=== PATIENT | male | born 2000 | race Caucasian/White ===

== ENCOUNTER 2020-01-06 08:06 | Outpatient (CLI) | payer OTHER, SELFPAY ==
--- NOTE | 2020-01-06 08:23 | MR_ITS ---
WS: [id number] MRI LEFT KNEE NONCONTRAST TECHNIQUE: Axial PD, coronal PD fat sat, coronal PD, sagittal PD, and sagittal PD fat-sat images obta ined. CLINICAL INFORMATION: UNSPECIFIED TEAR COMPARISON: None. FINDINGS: Distal quadriceps and patella tendons are intact. Left eccentric suprapatellar effusion. ACL is compl etely torn. No normal ACL fibers. PCL is normal. ACL contusion pattern involving the anterolateral fe moral condyle and posterior lateral tibial plateau. Additional contusion involving the anterior media l femoral condyle. Intrasubstance signal abnormality involving the posterior horn medial and lateral meniscus. No acute appearing meniscal tears. Moderate medial lateral joint space narrowing advanced f or patient this age. Subchondral degenerative change along the femoral intercondylar notch. Mild chondromalacia patella. No subchondral edema. Medial and lateral patellar retinacula appear inta ct. Normal popliteal fossa. Medial and lateral collateral ligaments appear intact. Normal popliteal f jermaine. MR/MR knee LT wo con* [id number] IMPRESSION: 1. High-grade complete tear of the ACL. No normal fibers visualized. PCL is in tact. 2. Chronic intrasubstance signal abnormality involving the posterior horn medi al and lateral meniscus. No acute appearing meniscal tears. 3. Medial and lateral collateral ligaments appear intact. 4. Contusion involving the anterolateral femoral condyle and posterior medial tibial plateau. Additional edema/contusion involving the anterior medial femora l condyle. 5. Mild chondromalacia patella. 6. Small left eccentric suprapatellar effusion. 7. Moderate medial lateral joint space narrowing advanced for patient this age .
== END 2020-01-06 08:07 | disposition home or self-care (01) ==
LOC: RADWPI 08:09
PROVIDERS: PCP Family Medicine; Visit Provider Internal Medicine
DX: S83.512A Sprain of anterior cruciate ligament of left knee, initial encounter (principal); S80.02XA Contusion of left knee, initial encounter; M22.42 Chondromalacia patellae, left knee; M25.462 Effusion, left knee; X58.XXXA Exposure to other specified factors, initial encounter
CPT/HCPCS: 73721

== ENCOUNTER 2024-12-01 12:08 | Outpatient (CLI) | payer OTHER, SELFPAY ==
--- NOTE | 2024-12-01 12:13 | MR_ITS ---
WS: [id number] MRI LEFT KNEE HISTORY: INJURY OF L KNEE, prior ACL repair. COMPARISON: 01/06/2020 Anterior cruciate ligament: Prior ACL repair appears intact. Mild heterogeneity in the proximal tendon but no tear. Posterior cruciate ligament: Intact. Medial collateral ligament: Intact. Posterior lateral corner structures: Intact. Medial menisci: Intact. Normal signal, size and shape. Lateral meniscus: Intact. Normal signal, size and shape. Extensor mechanism: Distal quadriceps tendon and patellar tendons are intact. Fluid and soft tissue: Minimal increased fluid in the suprapatellar bursa. No Mo's cyst. Osseous and articular structures: Patellofemoral compartment: Normal. Medial compartment: Mild narrowing of the compartment. Full-thickness increased signal measuring 5 mm along the weightbearing surface of the femoral condyle. No underlying marrow edema. Lateral compartment: Very minimal narrowing of the lateral compartment. Mild fissuring of the cartilage. No fracture or marrow edema. Focal marrow edema in the anterior femoral condyle is new. New osteochondral lesion measuring 4 mm just anterior to the lateral tibial spine. There are 2 intermediate signal foci within the intercondylar notch. The largest measures 14 x 9 mm and is anterior within the intercondylar notch and closely associated with the distal ACL. There is an additional smaller 6 x 6 mm intermediate signal intra-articular body and more centrally positioned in the intercondylar notch. Mild sprain involving the medial head of the gastrocnemius from the posterior femoral condyle. MR/MR knee LT wo con* [id number] IMPRESSION: 1. Intact ACL reconstruction. 2. No meniscal tears. 3. There are 2 intermediate signal foci in the intercondylar notch which may b e intra-articular bodies. These may be meniscal or osseous fragments. The large st measures 14 x 9 mm. These are both closely associated with the repaired ACL. 4. New, 4 mm osteochondral lesion anterior tibial plateau adjacent to the ACL. 5. Mild narrowing medial compartment with 5 mm softening of the cartilage yvette g the weightbearing surface of the femoral condyle. 6. Additional new marrow edema in the anterior mid femoral condyle. Nonweightb earing surface. 7. Mild sprain involving the medial head of the gastrocnemius from the posteri or femoral condyle.
== END 2024-12-01 12:09 | disposition home or self-care (01) ==
LOC: RAD 12:10
PROVIDERS: PCP Family Medicine; Visit Provider Family Medicine
DX: S89.92XA Unspecified injury of left lower leg, initial encounter (principal); S83.8X2A Sprain of other specified parts of left knee, initial encounter; X58.XXXA Exposure to other specified factors, initial encounter; M23.42 Loose body in knee, left knee; M70.52 Other bursitis of knee, left knee; M93.862 Other specified osteochondropathies, left lower leg; M67.864 Other specified disorders of tendon, left knee; Z98.890 Other specified postprocedural states
CPT/HCPCS: 73721